=== PATIENT | female | born 1995 | race Caucasian/White ===

== ENCOUNTER 2017-04-15 21:32 | Observation (INO) | payer OTHER ==
[~2017-04-15] VITALS: Ht 154.9 cm; Wt 68.0 kg
[2017-04-15] MEDS ORDERED: SODIUM CHLORIDE 0.9% 1000ML 1,000 ML IV STA (21:59)
[2017-04-15] MEDS ORDERED: ONDANSETRON INJ 2 MG/ML 2 ML VIAL IV STA (21:59)
[2017-04-15] MEDS ORDERED: MoRPHine SULFATE 4 MG/ML 1 ML CARP\\VIAL IV PRN (22:00)
[2017-04-15] MEDS ORDERED: BCPILLS PO (22:06)
[2017-04-15 22:20] LABS: BASO % 0.1 %; BASO ABS # 0.03 K/uL (0-0.2); COMPLETE YES; EOS % 0.9 %; HEMATOCRIT 41.9 % (37-47); IG% 0.2 %; LYMPH % 8.5 %; LYMPH ABS # 1.75 K/uL (1.2-3.4); MEAN CELL VOLUME 89.1 fL (80-100); MEAN CORPUSCULAR HEMOGLOBIN 29.8 pg (25-34); MEAN CORPUSCULAR HGB CONC 33.4 g/dl (32-36); MEAN PLATELET VOLUME 9.6 fL (7.4-10.4); MONO % 5.6 %; NEUT % 84.7 %; PLATELET COUNT 338 K/uL (130-400)
[2017-04-15 22:28] LABS: URINE APPEARANCE CLEAR (CLEAR); URINE BILIRUBIN NEG (NEG); URINE COLOR YELLOW; URINE EPITHELIAL CELL AUTO >30 /lpf (0-5); URINE NITRITE NEG (NEG); URINE SPECIFIC GRAVITY 1.022 (1.000-1.030); UROBILINOGEN NEG (NEG)
[2017-04-15 22:35] LABS: PREG INTERNAL NEGATIVE QC NEG CLEAR BACKGROUND; PREG INTERNAL POSITIVE QC POS CONTROL LINE
[2017-04-15 22:37] LABS: MANUAL MICROSCOPIC REQUIRED? NO; REVIEW REQ? YES
[2017-04-15 22:39] LABS: BUN/CREATININE RATIO 16.4 (10-20); CALCIUM 9.7 mg/dl (8.5-10.1); CREATININE 0.81 mg/dl (0.60-1.20); POTASSIUM 3.7 mmol/L (3.5-5.1)
--- NOTE | 2017-04-15 22:56 | DIAGNOSTIC IMAGING REPORT ---
ABD/PELVIS NO IV OR ORAL CONT HISTORY: 21 years-old Female right flank pain acute right-sided flank pain. Initial exam COMPARISON: None available TECHNIQUE: Multiple axial CT images of the abdomen and pelvis were obtained without contrast. A dose lowering technique was used consistent with the principals of THO. FINDINGS: Lung bases are generally clear. No pneumoperitoneum. Imaged inferior cardiac chambers are unremarkable. The liver, gallbladder, pancreas, spleen and adrenal glands are within normal limits. Kidneys, ureters, urinary bladder, uterus and adnexa are unremarkable. The abdominal aorta is normal in course and caliber. There is no bulky retroperitoneal adenopathy. There is no bowel obstruction. There is a 5 x 4 mm calcification of the right lower quadrant seen on image 294 series 3 which appears to be present at the base of the appendix. Dilated inflamed tubular structure measuring up to 11 mm in diameter with mild surrounding inflammatory stranding nicely seen on image 314 of series 3 suggesting an inflamed appendix. Evaluation is somewhat limited without the use of contrast. Soft tissues are unremarkable. Bones appear intact. IMPRESSION: Dilated fluid-filled tubular structure within the right lower quadrant, 11 mm with moderate surrounding inflammatory stranding suggests acute appendicitis. 5 x 4 mm calcification is seen near the base of this structure suggesting obstructing appendicolith. No evidence of abscess or perforation. Findings were discussed with Dr. Flores on 04/15/2017 at 10:54 PM The above report was generated using voice recognition software. It may contain grammatical, syntax or spelling errors. Electronically signed by: Yared Luz M.D. 04/15/2017 10:55 PM Dictated Date/Time: 04/15/2017 10:47 PM
[2017-04-15] MEDS ORDERED: DEXAMETHASONE SOD INJ 4 MG/ML VIAL ONE (23:24)
[2017-04-15] MEDS ORDERED: ONDANSETRON INJ 2 MG/ML 2 ML VIAL ONE (23:24)
[2017-04-15] MEDS ORDERED: NEOSTIGMINE METHYLSULFATE 5 MG/5 ML SYR ONE (23:24)
[2017-04-15] MEDS ORDERED: PROPOFOL IV EMULSION 10 MG/ML 20 ML VIAL IV ONE (23:24)
[2017-04-15] MEDS ORDERED: MIDAZOLAM HCL 1 MG/ML 2ML VIAL ONE (23:24)
[2017-04-15] MEDS ORDERED: GLYCOPYRROLATE INJ 0.2 MG/ML VIAL ONE (23:24)
[2017-04-15] MEDS ORDERED: SUCCINYLCHOLINE CHLORIDE 20 MG/ML 10 ML VIAL IV ONE (23:24)
[2017-04-15] MEDS ORDERED: FENTANYL CITRATE INJ 50 MCG/1 ML 2 ML VIAL ONE ×2 (23:24)
[2017-04-15] MEDS ORDERED: ROCURONIUM BROMIDE 10 MG/ML 5 ML VIAL IV ONE (23:25)
[2017-04-15] MEDS ORDERED: BUPIVACAINE/EPINEPHRINE 0.5% MPF 1:200,000 30 ML VIAL ONE (23:26)
[2017-04-15 23:27] VITALS: O2SAT 98
--- NOTE | 2017-04-15 23:40 | History and Physical ---
History & Physical Date Apr 15, 2017. Chief Complaint abdominal pain History of Present Illness The patient is a 21 year old female with complaints of severe/sudden RLQ pain this evening. pain rapidly worsened. Additional History Hepatic Disease: No Endocrine Disorder: No Kidney Disease: No Hypertension: No Heart Disease: No Bleeding Tendencies: No Infectious Diseases: No Allergies Coded Allergies: No Known Allergies (Unverified , 04/15/17) Home Medications Scheduled Control Pills ( Control Pills), 1 TAB PO DAILY Physical Examination Skin: warm/dry Eyes: normal inspection, EOMI Head: normocephalic, atraumatic Neck: supple, trachea midline Respiratory/Chest: no respiratory distress Abdomen / GI: + pertinent finding (+RLQ ttp. + Rovsing. + guarding) Neurologic/Psych: alert, oriented x 3 Diagnosis acute appendicitis on ct scan Plan of Treatment discussed diagnosis/treatment discussed risks of surgery ( bleeding/infection/dvt/pe/injury to other organs/ staple line leaks etc...) questions answered. will proceed with lap appy jil
[2017-04-15] MEDS ORDERED: ATROPINE SULFATE 0.1 MG/ML 5ML SYR IV PRN (23:45)
[2017-04-15] MEDS ORDERED: ONDANSETRON INJ 2 MG/ML 2 ML VIAL IV PRN (23:45)
[2017-04-15] MEDS ORDERED: EpHEDrine SULFATE INJ 50 MG/ML AMP IV PRN (23:45)
[2017-04-15] MEDS ORDERED: FENTANYL CITRATE INJ 50 MCG/1 ML 2 ML VIAL IV PRN (23:45)
[2017-04-15] MEDS ORDERED: HYDROmorphone INJ 1 MG/ML SYR IV PRN (23:45)
[2017-04-16] VITALS (7 sets, daily range): BP systolic 116–128; BP diastolic 73–80; PULSE 70–93; TEMP 36.8–37.5; O2SAT 95–96; Ht 154.9 cm; Wt 68.0 kg
[2017-04-16] MEDS ORDERED: IV FLUIDS COMPLETED PRN (00:15)
--- NOTE | 2017-04-16 00:24 | EMERGENCY ROOM VISIT NOTE ---
History Report prepared by Mayo: Loni Geiger Under the Supervision of: Alejandro TrujilloO. First contact with patient: 21:57 Chief Complaint: ABDOMINAL PAIN Stated Complaint: SEVERE ABD PAIN History of Present Illness The patient is a 21 year old female who presents to the Emergency Room with complaints of worsening diffuse abdominal pain for the past 3 hours. The patient had generalized abdominal pain that came on gradually and has been gradually worsening. She states that now her pain is worse in the RLQ. She has some right lower back pain as well. The patient rates her current pain as a 7/ 10 in severity. She has some lower abdominal pain with urination. She denies fevers, chills, rash, hematuria, and pain or swelling in her legs. She denies any previous abdominal surgeries. Her LNMP was 1 week ago. Source of History: patient Onset: 3 hours ago Position: abdomen Symptom Intensity: 7/10 Timing: worsening Modifying Factors (Worsening): other (time) Associated Symptoms: + back pain, No fevers, No chills, No urinary symptoms , No rash Review of Systems See HPI for pertinent positives & negatives. A total of 10 systems reviewed and were otherwise negative. Past Medical & Surgical Medical Problems: (1) Acute appendicitis (2) No pertinent past medical history Family History No pertinent history stated. Social History Smoking Status: Never Smoker Smokeless Tobacco Use: No Alcohol Use: none Drug Use: none Marital Status: single Housing Status: lives with roommate Occupation Status: [employer] student Current/Historical Medications Scheduled Control Pills ( Control Pills), 1 TAB PO DAILY Scheduled PRN Hydrocodone/Acetaminophen 5MG/325MG ([place] 5MG/325MG), 1-2 TABLET PO Q4H PRN for Pain Allergies Coded Allergies: No Known Allergies (Unverified , 04/15/17) Physical Exam Vital Signs Date Time Temp Pulse Resp B/P (MAP) Pulse Ox O2 Delivery O2 Flow Rate FiO2 04/15/17 23:27 37.8 75 18 148/91 98 Room Air 04/15/17 21:50 37.0 96 20 144/85 97 Room Air Physical Exam GENERAL: Patient is awake, alert, very anxious and uncomfortable. EYES: The conjunctivae are clear. The pupils are round and reactive. EARS, NOSE, MOUTH AND THROAT: The nose is without any evidence of any deformity. Mucous membranes are moist tongue is midline NECK: The neck is nontender and supple. RESPIRATORY: Normal respiratory effort is noted there is no evidence of wheezing rhonchi or rales CARDIOVASCULAR: Regular rate and rhythm noted there no murmurs rubs or gallops normal S1 normal S2 GASTROINTESTINAL: The abdomen is soft with tenderness and guarding in RLQ, also diffuse tenderness noted. Bowel sounds are present in all quadrants. BACK: No midline tenderness or or step-off noted range of motion in flexion extension as well as rotation no signs of muscle spasm noted. Mild right CVA tenderness to percussion. MUSCULOSKELETAL/EXTREMITIES: There is no evidence of gross deformity full range of motion is noted in the hips and shoulders SKIN: There is no obvious evidence of any rash. There are no petechiae, pallor or cyanosis noted. NEUROLOGIC: Patient is awake alert and oriented x3 Medical Decision & Procedures ER Provider Diagnostic Interpretation: Radiology results as stated below per my review and radiologist interpretation: ABD/PELVIS NO IV OR ORAL CONT HISTORY: 21 years-old Female right flank pain acute right-sided flank pain. Initial exam COMPARISON: None available TECHNIQUE: Multiple axial CT images of the abdomen and pelvis were obtained without contrast. A dose lowering technique was used consistent with the principals of ALARA. FINDINGS: Lung bases are generally clear. No pneumoperitoneum. Imaged inferior cardiac chambers are unremarkable. The liver, gallbladder, pancreas, spleen and adrenal glands are within normal limits. Kidneys, ureters, urinary bladder, uterus and adnexa are unremarkable. The abdominal aorta is normal in course and caliber. There is no bulky retroperitoneal adenopathy. There is no bowel obstruction. There is a 5 x 4 mm calcification of the right lower quadrant seen on image 294 series 3 which appears to be present at the base of the appendix. Dilated inflamed tubular structure measuring up to 11 mm in diameter with mild surrounding inflammatory stranding nicely seen on image 314 of series 3 suggesting an inflamed appendix. Evaluation is somewhat limited without the use of contrast. Soft tissues are unremarkable. Bones appear intact. IMPRESSION: Dilated fluid-filled tubular structure within the right lower quadrant, 11 mm with moderate surrounding inflammatory stranding suggests acute appendicitis. 5 x 4 mm calcification is seen near the base of this structure suggesting obstructing appendicolith. No evidence of abscess or perforation. Findings were discussed with Dr. Flores on 04/15/2017 at 10:54 PM The above report was generated using voice recognition software. It may contain grammatical, syntax or spelling errors. Electronically signed by: Yared Luz M.D. 04/15/2017 10:55 PM Dictated Date/Time: 04/15/2017 10:47 PM Laboratory Results 04/15/17 22:10 Test 04/15/17 22:10 Urine Color YELLOW Urine Appearance CLEAR (CLEAR) Urine pH 6.0 (4.5-7.5) Urine Specific [place] 1.022 (1.000-1.030) Urine Protein NEG (NEG) Urine Glucose (UA) NEG (NEG) Urine Ketones NEG (NEG) Urine Occult Blood 1+ (NEG) Urine Nitrite NEG (NEG) Urine Bilirubin NEG (NEG) Urine Urobilinogen NEG (NEG) Urine Leukocyte Esterase NEG (NEG) Urine WBC (Auto) 10-30 /hpf (0-5) Urine RBC (Auto) 5-10 /hpf (0-4) Urine Hyaline Casts (Auto) 1-5 /lpf (0-5) Urine Epithelial Cells (Auto) >30 /lpf (0-5) Urine Bacteria (Auto) 2+ (NEG) Urine Renal Epithelial Cells /lpf (0-5) Urine Yeast (Auto) BUDDING (NONE PRSENT) Anion Gap 8.0 mmol/L (3-11) Est Creatinine Clear Calc Drug Dose 96.9 ml/min Estimated GFR () 120.3 Estimated GFR (Non- 103.8 BUN/Creatinine Ratio 16.4 (10-20) Calcium Level 9.7 mg/dl (8.5-10.1) Total Bilirubin 0.2 mg/dl (0.2-1) Direct Bilirubin 0.1 mg/dl (0-0.2) Aspartate Amino Transf (AST/SGOT) 18 U/L (15-37) Alanine Aminotransferase (ALT/SGPT) 20 U/L (12-78) Alkaline Phosphatase 67 U/L (45-117) Total Protein 8.0 gm/dl (6.4-8.2) Albumin 3.9 gm/dl (3.4-5.0) Lipase 147 U/L (73-393) Human Chorionic Gonadotropin, Qual NEG (NEG) Laboratory results per my review. Medications Administered Medications (Trade) Dose Ordered Sig/Ranjit Route Start Time Stop Time Status Last Admin Dose Admin Sodium Chloride 1,000 ml @ 999 mls/hr Q1H1M STAT IV 04/15/17 21:59 04/15/17 22:59 DC 04/15/17 22:12 999 MLS/HR Ondansetron HCl (Zofran Inj) 4 mg NOW STAT IV 04/15/17 21:59 04/15/17 22:01 DC 04/15/17 22:12 4 MG Morphine Sulfate (MoRPHine SULFATE INJ) 4 mg Q15M PRN IV 04/15/17 22:00 04/16/17 01:04 DC 04/15/17 22:12 4 MG Bupivacaine HCl/ Epinephrine Bitart (Sensorcaine/ Epinephrine 0.5% Mpf 1:200,000) 30 ml STK-MED ONCE .ROUTE 04/15/17 23:26 04/15/17 23:27 DC 04/15/17 23:26 20 ML ED Course 2157: The patient was evaluated in room A10. A complete history and physical examination were performed. 215: Zofran 4 mg IV, NSS 1000 ml @ 999 mls/hr IV 2200: Morphine sulfate 4 mg IV - PRN 2253: I reassessed the patient at this time. She is doing well. I discussed the results and treatment plan with the patient. I answered all pertaining questions that she had. She expressed understanding and verbalized agreement. 5: I discussed the patient's case with Dr. East of general surgery. He will come to the ED to evaluate the patient for further management. Medical Decision Differential diagnosis: Etiologies such as appendicitis, diverticulitis, PUD, biliary pathology, UTI, pancreatitis, obstruction, mesenteric ischemia, aortic pathology, infections, inflammatory bowel disease, renal colic, as well as others were entertained. Nursing notes reviewed. The patient is a 21-year-old female who presented to the emergency department for evaluation of abdominal pain. The patient appears to have a history physical exam consistent with acute appendicitis. This was confirmed by laboratory and radiographic studies. I discussed the patient's laboratory and radiographic studies with her. She was treated with IV fluids IV pain medication in emergency department. On subsequent reevaluation she was feeling much better. I discussed her case with the on-call general surgeon. They've agreed to evaluate the patient in the emergency department for further management and disposition. Medication Reconcilliation Current Medication List: was personally reviewed by me Blood Pressure Screening Patient's blood pressure: Elevated blood pressure Blood pressure disposition: Elevated BP felt to be situational Consults Time Called: 2252 Consulting Physician: Dr. East Returned Call: [phone] I discussed the patient's case with Dr. East of general surgery. He will come to the ED to evaluate the patient for further management. Impression Primary Impression: Acute appendicitis Scribe Attestation The scribe's documentation has been prepared under my direction and personally reviewed by me in its entirety. I confirm that the note above accurately reflects all work, treatment, procedures, and medical decision making performed by me. Departure Information Dispostion Being Evaluated By Surgeon Prescriptions Hydrocodone/Acetaminophen 5MG/325MG ([place] 5MG/325MG) Tab 1-2 TABLET PO Q4H Y for Pain, #30 TAB Prov: Kenan Barrett JR.,PAKimberly 04/16/17 Patient Instructions My [facility] Problem Qualifiers Primary Impression: Acute appendicitis Acute appendicitis type: with localized peritonitis Qualified Codes: K35.3 - Acute appendicitis with localized peritonitis
[2017-04-16] MEDS ORDERED: ONDANSETRON INJ 2 MG/ML 2 ML VIAL IV PRN (00:45)
[2017-04-16] MEDS ORDERED: ACETAMINOPHEN IV 100 ML IV PRN (00:45)
[2017-04-16] MEDS ORDERED: IBUPROFEN 600 MG TAB PO PRN (00:45)
[2017-04-16] MEDS ORDERED: HYDROCODONE/ACETAMOPHEN 5/325MG TAB PO PRN ×2 (00:45)
[2017-04-16] MEDS ORDERED: MoRPHine SULFATE 2 MG/ML CARP IV PRN (00:45)
[2017-04-16] MEDS ORDERED: MoRPHine SULFATE 4 MG/ML 1 ML CARP\\VIAL IV PRN (00:45)
--- NOTE | 2017-04-16 00:52 | [facility] Operative Report ---
Operative Report Operative Date Apr 16, 2017. Pre-Operative Diagnosis Acute Appendicitis Post-Operative Diagnosis Acute Appendicitis Procedure(s) Performed Laparoscopic Appendectomy Surgeon Dr. López East Playground Worker Surgeon(s) None Estimated Blood Loss 5ml Findings acute appendicitis Specimens A. Appendix Anesthesia get Complication(s) None Disposition Recovery Room / PACU Description of Procedure After informed consent was obtained the patient was taken to the operating room and placed in a supine position. After successful intubation the left arm was tucked and the abdomen was sterilely prepped and draped in usual fashion. An infraumbilical incision was made with an 11 blade scalpel and carried down through the soft tissue using electrocautery. Anterior rectus fascia was opened using electrocautery and 2 #0 Vicryl stay sutures were placed. The peritoneum was entered using blunt finger penetration and a finger sweep was performed. A 12 mm Marti trocar was placed and the abdomen was insufflated to 18 mmHg. The Laparoscope was inserted and the abdomen examined in 360. A suprapubic 5 mm port and a left lower quadrant 12 mm port were placed under direct vision. The patient was placed in a Trendelenburg position and slightly airplaned to the left. We began by looking in the right lower quadrant and immediately saw an inflamed acute appendicitis. There was no perforation. There was a small amount of cloudy fluid in the pelvis. Uterus ovaries bladder etc. were all normal. I was able to grab the appendix and elevate it. Using a single firing of a Brown 60 mm stapler I was able to transect the appendix at its base with the cecum. The mesentery was very small and wasn't incorporated with this single firing. The appendix would be placed into an Endo Catch bag and removed from the camera port site. We did irrigate the right lower quadrant as well as the pelvis until all the irrigant was clear. There was adequate hemostasis. I ran the small intestine from the ileocecal valve backwards for about 6 feet all of which was normal. Gallbladder liver stomach etc. all appeared normal as well. We removed all the trochars and desufflated the abdomen. The fascia of the camera port as well as the left lower quadrant was closed using 0 Vicryl with [id number] fashion. The wounds were all irrigated and closed using 4-0 Monocryl. Marcaine was injected around them for postoperative analgesia and skin glue used as a dressing. The patient was awaken extubated and transferred recovery in stable condition I attest to the content of the Intraoperative Record and any orders documented therein. Any exceptions are noted below.
--- NOTE | 2017-04-16 01:05 | Anesthesiology Progress Note ---
Anesthesia Post Op Note Date & Time Apr 16, 2017 at 01:05 Vital Signs Pain Intensity: 0 Vital Signs Past 12 Hours Date Time Temp Pulse Resp B/P (MAP) Pulse Ox O2 Delivery O2 Flow Rate FiO2 04/15/17 23:27 37.8 75 18 148/91 98 Room Air 04/15/17 21:50 37.0 96 20 144/85 97 Room Air Notes Mental Status: alert / awake / arousable, participated in evaluation Pt Amnestic to Procedure: Yes Nausea / Vomiting: adequately controlled Pain: adequately controlled Airway Patency, RR, SpO2: stable & adequate BP & HR: stable & adequate Hydration State: stable & adequate Anesthetic Complications: no major complications apparent
[2017-04-16] MEDS: LACTATED RINGER'S 1000ML 1,000 ML IV SCH ×2 (02:04→07:26)
[2017-04-16 06:18] LABS: BASO % 0.1 %; BASO ABS # 0.01 K/uL (0-0.2); COMPLETE YES; HEMATOCRIT 39.1 % (37-47); IG% 0.4 %; LYMPH % 3.7 %; LYMPH ABS # 0.61 K/uL (1.2-3.4); MEAN CELL VOLUME 88.3 fL (80-100); MEAN CORPUSCULAR HEMOGLOBIN 29.1 pg (25-34); MEAN PLATELET VOLUME 9.6 fL (7.4-10.4); MONO % 1.3 %; NEUT % 94.5 %; PLATELET COUNT 296 K/uL (130-400); RED BLOOD COUNT 4.43 M/uL (4.2-5.4)
--- NOTE | 2017-04-16 07:45 | Surgery Progress Note ---
Surgery Progress Note Date of Service Apr 16, 2017. Subjective Post OP Day: 1 doing well/as expected. mild nausea. dmitry liquids. pre-op pain resolved. Objective Vital Signs: Date Time Temp Pulse Resp B/P (MAP) Pulse Ox O2 Delivery O2 Flow Rate FiO2 04/16/17 07:01 36.8 70 16 120/76 (91) 96 Room Air 04/16/17 04:46 37.0 93 14 118/73 (88) 96 Room Air 04/16/17 03:45 37.4 92 14 116/73 (87) 96 Room Air 04/16/17 02:45 37.2 78 14 127/80 (96) 95 Room Air 04/16/17 02:15 37.5 73 14 125/78 (94) 95 Room Air 04/16/17 01:50 37.3 73 16 128/74 04/16/17 01:45 Room Air 04/16/17 01:25 37 80 16 130/ 96 Room Air 04/16/17 01:10 37 82 16 132/74 98 Room Air 04/16/17 01:05 37 88 16 132/74 100 Oxymask 2 04/16/17 01:00 37.1 105 18 136/78 100 Room Air 4 Oxymask 04/16/17 00:55 37 105 18 130/72 100 Room Air 4 Oxymask 04/15/17 23:27 37.8 75 18 148/91 98 Room Air 04/15/17 21:50 37.0 96 20 144/85 97 Room Air General Appearance: no apparent distress Abdomen: non distended, soft, + pertinent finding (incisional tenderness) Incision(s): clean, intact Laboratory Results: Results Past 24 Hours Test 04/15/17 22:10 04/16/17 06:06 Range/Units White Blood Count 20.60 16.70 4.8-10.8 K/uL Red Blood Count 4.70 4.43 4.2-5.4 M/uL Hemoglobin 14.0 12.9 12.0-16.0 g/dL Hematocrit 41.9 39.1 37-47 % Mean Corpuscular Volume 89.1 88.3 80-100 fL Mean Corpuscular Hemoglobin 29.8 29.1 25-34 pg Mean Corpuscular Hemoglobin Concent 33.4 33.0 32-36 g/dl Platelet Count 338 296 130-400 K/uL Mean Platelet Volume 9.6 9.6 7.4-10.4 fL Neutrophils (%) (Auto) 84.7 94.5 % Lymphocytes (%) (Auto) 8.5 3.7 % Monocytes (%) (Auto) 5.6 1.3 % Eosinophils (%) (Auto) 0.9 0.0 % Basophils (%) (Auto) 0.1 0.1 % Neutrophils # (Auto) 17.42 15.79 1.4-6.5 K/uL Lymphocytes # (Auto) 1.75 0.61 1.2-3.4 K/uL Monocytes # (Auto) 1.16 0.22 0.11-0.59 K/uL Eosinophils # (Auto) 0.19 0.00 0-0.5 K/uL Basophils # (Auto) 0.03 0.01 0-0.2 K/uL RDW Standard Deviation 44.7 44.2 36.4-46.3 fL RDW Coefficient of Variation 13.6 13.7 11.5-14.5 % Immature Granulocyte % (Auto) 0.2 0.4 % Immature Granulocyte # (Auto) 0.05 0.07 0.00-0.02 K/uL Urine Color YELLOW Urine Appearance CLEAR CLEAR Urine pH 6.0 4.5-7.5 Urine Specific [place] 1.022 1.000-1.030 Urine Protein NEG NEG Urine Glucose (UA) NEG NEG Urine Ketones NEG NEG Urine Occult Blood 1+ NEG Urine Nitrite NEG NEG Urine Bilirubin NEG NEG Urine Urobilinogen NEG NEG Urine Leukocyte Esterase NEG NEG Urine WBC (Auto) 10-30 0-5 /hpf Urine RBC (Auto) 5-10 0-4 /hpf Urine Hyaline Casts (Auto) 1-5 0-5 /lpf Urine Epithelial Cells (Auto) >30 0-5 /lpf Urine Bacteria (Auto) 2+ NEG Urine Renal Epithelial Cells 0-5 /lpf Urine Yeast (Auto) BUDDING NONE PRSENT Sodium Level 138 136-145 mmol/L Potassium Level 3.7 3.5-5.1 mmol/L Chloride Level 103 98-107 mmol/L Carbon Dioxide Level 27 21-32 mmol/L Anion Gap 8.0 3-11 mmol/L Blood Urea Nitrogen 13 7-18 mg/dl Creatinine 0.81 0.60-1.20 mg/dl Est Creatinine Clear Calc Drug Dose 96.9 ml/min Estimated GFR () 120.3 Estimated GFR (Non- 103.8 BUN/Creatinine Ratio 16.4 10-20 Random Glucose 102 70-99 mg/dl Calcium Level 9.7 8.5-10.1 mg/dl Total Bilirubin 0.2 0.2-1 mg/dl Direct Bilirubin 0.1 0-0.2 mg/dl Aspartate Amino Transf (AST/SGOT) 18 15-37 U/L Alanine Aminotransferase (ALT/SGPT) 20 12-78 U/L Alkaline Phosphatase 67 45-117 U/L Total Protein 8.0 6.4-8.2 gm/dl Albumin 3.9 3.4-5.0 gm/dl Lipase 147 73-393 U/L Human Chorionic Gonadotropin, Qual NEG NEG Assessment & Plan POD1 doing well increase activity try food for lunch, if tolerates can go home later today
[2017-04-16] MEDS ORDERED: CEFOXITIN IV 2,000 MG in DEXTROSE 5% 50ML 50 ML IV SCH (08:00)
[2017-04-16] MEDS ORDERED: HYDR-5688 PO (11:05)
--- NOTE | 2017-04-16 11:13 | Discharge Instructions ---
Discharge Instructions Date of Service Apr 16, 2017. Admission Reason for Admission: Acute Appendicitis Discharge Discharge Diagnosis / Problem: Laparoscopic appendectomy Discharge Goals Goal(s): Decrease discomfort Activity Recommendations Activity Limitations: as noted below Lifting Limitations: no more than 10 pounds Shower/Bathe: no limitations Driving or Machine Use: resume 3 days after discharge . Instructions / Follow-Up Instructions / Follow-Up Dr. East in 2 weeks, call [phone] to schedule, [address] You can take ibuprofen 600 mg every 6 hours as needed in addition to [place], do not take additional Tylenol Current Hospital Diet Patient's current hospital diet: Regular Diet Discharge Diet Recommended Diet: Regular Diet Procedures Procedures Performed: Laparoscopic Appendectomy Pending Studies Studies pending at discharge: no School Instructions Return To School: 3 days Additional Instructions: In 3-5 days Medical Emergencies . Who to Call and When: Medical Emergencies: If at any time you feel your situation is an emergency, please call 911 immediately. . Non-Emergent Contact Non-Emergency issues call your: Surgeon Call Non-Emergent contact if: you have a fever, temperature is above 101.5, your pain is not controlled, you have any medication questions . "Provider Documentation" section prepared by Kenan Barrett. . VTE Core Measure Inpt VTE Proph given/why not?: SCD's [place] Drug Monitoring Program Search Results: no issues identified
--- NOTE | 2017-04-17 00:04 | DISCHARGE SUMMARY ---
PRIMARY DISCHARGE DIAGNOSIS: Acute appendicitis. PROCEDURE PERFORMED: Laparoscopic appendectomy. HOSPITAL COURSE: The patient is a 21-year-old female who presented to the Emergency Department with several hours of generalized abdominal pain localizing right lower quadrant. Her white count was 20,000. CT was consistent with appendicitis and appendicolith. She was taken to the operating room overnight for laparoscopic appendectomy. Procedure was well tolerated. She was transferred to the surgical floor. She was continued on IV Mefoxin. By the next morning, her white count was improving. She was able to tolerate an advancing diet during the day. She had minimal pain. Her abdomen was soft. Incisions were dry. She was stable for discharge in the afternoon. DISCHARGE INSTRUCTIONS: Discharge home. Follow up with Dr. East in 2 weeks. DISCHARGE MEDICATIONS: [place] 1-2 tablets every 4 hours as needed and Motrin 600 mg every 6 hours as needed.
== END 2017-04-16 12:34 | disposition home or self-care (01) ==
LOC: C.EDB 21:34 → C.MSN 23:41 → ENRESERV 04-16 01:08
PROVIDERS: ADMIT Surgery; ATTEND Surgery
DX: K35.80 Unspecified acute appendicitis (principal); Z79.3 Long term (current) use of hormonal contraceptives; Z68.28 Body mass index [BMI] 28.0-28.9, adult